=== PATIENT | male | born 1965 | race Caucasian/White ===

== ENCOUNTER 2021-01-16 08:47 | Outpatient (CLI) | payer OTHER, SELFPAY ==
--- NOTE | 2021-02-03 10:24 | WPDHOMESLEEP ---
Sleep Study - Home Unattended Date of Study: 01/16/21 Ordering Provider: Jessenia Cox MD Interpreting Provider: Jessenia Cox MD Home Sleep Study Type: Watch PAT Height: 1.85 m Weight: 136.078 kg Body Mass Index: 39.5 Neck Circumference (inches): 17.5 [place]: 8 Reason for Sleep Study restless sleep, snoring, gasping for breath during sleep Sleep History Luciano Price is a 55 year old man with a history of restless sleep with constant tossing and turning, gasping for breath at night, and not feeling refreshed on waking. He currently works at night. He changes his schedule back to her normal sleep-wake cycle on the weekends. He has tried Ambien which is not helping much and it is causing crazy dreams. He wakes up during the night. He does not awaken feeling short of breath. He occasionally awakens at night with heartburn, belching or coughing. He frequently wakes up with loud snoring. He does not have trouble sleeping with a cold, does not wake up gasping for breath at night. He occasionally has breathing problems at night reported to him by his . He does not sweat excessively at night or notices heart pounding or beating irregularly night. He occasionally falls asleep during the day, never involuntarily and never while driving. He does not have loss of muscle tone with strong emotion. He does not have daytime difficulties due to excessive sleepiness. He does not feel paralyzed on waking or falling asleep. He occasionally has vivid dreamlike scenes upon awakening or falling asleep. He is not afraid to go to sleep. He does not have nightmares. He frequently remembers his dreams. He occasionally has racing thoughts. He rarely feels sad or depressed. He occasionally has anxiety. He frequently has muscular tension. He occasionally notices parts of his body jerking. He does not kick at night. He occasionally has crawling and aching feelings in his legs. He occasionally has leg pain during the night. He does not have morning jaw pain. He rarely grinds his teeth during sleep. He frequently is bothered by pain during the day. He rarely is awakened by pain at night. He rarely wakes up feeling stiff the morning, rarely wakes up with sore achy muscles. He does not wake up with pain in the neck and spine. He has headaches, memory problems, dizziness, and sexual problems. Normal bedtime is 5:00 a.m. falling asleep within 5 minutes waking 1-2 times to use the bathroom. He wakes somewhere between 11:00 a.m. and 1:00 p.m.. He wakes 1 or 2 times to urinate. On the weekends his schedule changes and he goes to bed at 11:30 p.m. and wakes at 6:00 a.m.. He takes naps in the afternoon, and sometimes is refreshed after a short nap. He is drowsy for 2 hours after waking. He feels better in the afternoon compared to other times of the day. Habits: Never smoked tobacco. Caffeine 2 servings per week. No alcohol or recreational drugs. [facility]LY [facility] Past Medical History Medical History Essential (primary) hypertension Mixed hyperlipidemia Psoriatic arthritis Screen for colon cancer Screening PSA (prostate specific antigen) Sleep apnea Surgical History Surgical History History of ankle surgery Family History Family History Mother Family history of lupus erythematosus Social History Social History Smoking status: Never smoker Alcohol intake: never Medications Home Medications Medication Instructions Recorded Confirmed Type folic acid 1 mg tablet 1 mg PO DAILY #90 tablet 04/23/20 Rx lisinopril 20 mg tablet 20 mg PO DAILY #90 tablet 04/23/20 Rx methotrexate sodium 2.5 mg tablet 2.5 mg PO WEEKLY #24 tablet 04/23/20 Rx adalimumab 40 mg/0.8 mL See Rx Instructions SUBCUT .COMPLEX 07/16/20 History sub
[2021-02-03 11:06] VITALS: BMI 39.5
== END 2021-01-17 16:00 | disposition home or self-care (01) ==
LOC: ANHCSM 08:53
PROVIDERS: PCP Family Medicine; Visit Provider Internal Medicine Critical Care Medicine
DX: G47.10 Hypersomnia, unspecified (principal); G47.39 Other sleep apnea; G47.26 Circadian rhythm sleep disorder, shift work type
CPT/HCPCS: 95800

== ENCOUNTER 2021-03-19 12:33 | Outpatient (CLI) | payer OTHER, SELFPAY ==
--- NOTE | 2021-03-19 12:34 | ECHO_ITS ---
Patient Info Name: Luciano Price Age: 55 years : 1965 Gender: Male Ht: 73 in Wt: 293 lbs BSA: 2.67 m2 HR: 72 bpm BP: 177 / 105 mmHg Technical Quality: Fair Exam Date: 03/19/2021 3:32 PM Exam Location: [facility] Patient Status: Outpatient Admit Date: 03/19/2021 Staff Ordering Physician: Jessenia Cox MD Knife Setter: Lorena Stewart RDCS Attending Provider: Jessenia Cox MD Referring Physician: Brooke MARIE; Exam Type: CA echo doppler color flow Study Info Indications - sleep apnea /chf Complete two-dimensional, color flow and Doppler transthoracic echocardiogram is performed. Summary 1. Complete two-dimensional, color flow and Doppler transthoracic echocardiogram is performed. 2. Left ventricular systolic function is preserved, estimated at 50-55%. 3. Left ventricular chamber dimension is mildly enlarged. 4. The left ventricular diastolic function is grade I diastolic dysfunction. 5. E/e' 7 is not elevated. 6. Left atrial chamber dimension is mildly enlarged. 7. No pulmonary hypertension, estimated pulmonary arterial systolic pressure is 24 mmHg. Left Ventricle E/e' 7 is not elevated. Left ventricular systolic function is preserved, estimated at 50-55%. Left ventricular chamber dimension is mildly enlarged. The left ventricular diastolic function is grade I diastolic dysfunction. Right Ventricle Right ventricular chamber dimension is normal. Right ventricular systolic function is normal. Left Atria Left atrial chamber dimension is mildly enlarged. Right Atria Right atrial chamber dimension is normal. Aortic Valve The aortic valve is probable trileaflet. There is no aortic valve stenosis. There is no aortic valve regurgitation. Pulmonic Valve There is no pulmonic regurgitation. Mitral Valve There is no mitral valve stenosis. There is no mitral valve regurgitation. Tricuspid Valve There is no tricuspid valve regurgitation. No pulmonary hypertension, estimated pulmonary arterial systolic pressure is 24 mmHg. Pericardium/Pleural There is no pericardial effusion. Inferior Vena Cava Normal inferior vena cava with >50% collapse upon inspiration consistent with normal right atrial pressure, 5 mmHg. Aorta The aortic root size at the sinus of Valsalva is normal. Left Ventricular Outflow Tract Name Value Normal LVOT 2D LVOT Diameter 2.1 cm LVOT Doppler LVOT Peak Gradient 4 mmHg LVOT Mean Gradient 2 mmHg LVOT VTI 23 cm LVOT VTI/AV VTI Ratio 0.8 LVOT Stroke Volume 84 ml LVOT CO 16.0 l/min LVOT CI 6.0 l/min/m2 Pulmonic Valve Name Value Normal PV Doppler PV Peak Gradient
== END 2021-03-19 12:34 | disposition home or self-care (01) ==
PROVIDERS: PCP Family Medicine; Visit Provider Internal Medicine Critical Care Medicine
DX: G47.31 Primary central sleep apnea (principal)
CPT/HCPCS: 93306

== ENCOUNTER 2023-12-14 09:26 | Outpatient (CLI) | payer OTHER, SELFPAY ==
--- NOTE | 2024-01-10 12:25 | WPDSLEEPSTUD ---
Sleep Study Date of Study: 12/14/23 Ordering Provider: Dylon Palacios MD Interpreting Physician: Flaquita Gutierrez DO Sleep Study Type: CPAP Titration Height: 1.85 m Weight: 133.81 kg Body Mass Index: 38.9 Neck Circumference (inches): 19 [place]: 7 Reason for Sleep Study The patient had a WatchPAT home sleep test on 01/16/2021 that showed an overall AHI of 35, KIMBERLEE of 18.6 and desaturation down to 77%. He never got a PAP Titration study. Sleep History The patient is a 58-year-old male that had a sleep study ordered by his primary care physician for evaluation of sleep apnea. The patient rarely awakens from sleep short of breath. He occasionally awakens at night with heartburn, belching or cough. He frequently snores and is frequently loud enough that others complain. He denies having trouble sleeping when he has a cold. He denies waking up gasping for air throughout the night. He occasionally has breathing problems at night observed by himself or others. He denies sweating excessively at night. He denies having heart palpitations or irregular heartbeats during the night. He rarely falls asleep during the day but never while driving. He denies sleep paralysis, cataplexy and hypnagogic / hypnopompic hallucinations. He denies having trouble at school or work due to sleepiness. He denies feeling afraid of going to sleep. He denies having nightmares. He occasionally remembers his dreams. He occasionally has thoughts racing through his mind. He denies feeling sad or depressed. He rarely has anxiety. He denies having muscular tension. He rarely notices parts of his body jerk. He denies kicking during the night. He denies having crawling and aching feelings in his legs but occasionally has leg pain during the night. He rarely grinds his teeth during sleep but never awakens with morning jaw pain. He is frequently bothered by pain during the day but rarely awakened by pain during the night. He occasionally wakes up feeling stiff in the morning. He denies waking up with sore or achy muscles. He denies waking up with pain in the neck, spine and other joints. He goes to bed at 9:30 p.m. on both weekdays and weekends. It takes him 10-15 minutes to fall asleep. He wakes up 1-2 times throughout the night to urinate and is able to fall back asleep within a few minutes. He wakes up between 12-2 a.m. on both weekdays and weekends. He typically gets a minimum of 8 hours of sleep per night. He stays bed for 20 minutes after waking up in the morning. He currently lives with his and adult child. He denies consuming any caffeinated beverages within 2 hours of bedtime. He denies engaging in physical exercise before bedtime. He denies reading and watching television before falling asleep. He will take naps in the afternoon or the evening and they are refreshing. He consumes 1 caffeinated beverage per day. He denies tobacco, alcohol and recreational drug use. [facility] Past Medical History Medical History BMI 36.0-36.9,adult BMI 39.0-39.9,adult BMI 40.0-44.9, adult BMI over 35 Body mass index [BMI] 38.0-38.9, adult Bronchitis with wheezing Cutaneous mycobacteria Depression with anxiety Essential (primary) hypertension GERD without esophagitis Low back pain Mixed hyperlipidemia JOI (obstructive sleep apnea) Psoriatic arthritis Screen for colon cancer Screening PSA (prostate specific antigen) Sleep apnea Surgical History Surgical History History of ankle surgery Hx of colonoscopy Family History Family History Mother Family history of lupus erythematosus Father Alzheimers disease Sibling Acute myocardial infarction Sibling No problems noted. Social History Social History (Reviewed 01/10/24 @ 12:26 by Hellen
[2024-01-10 12:41] VITALS: BMI 38.9
== END 2023-12-15 07:09 | disposition home or self-care (01) ==
LOC: ANHCSM 09:26
PROVIDERS: PCP Family Medicine; Visit Provider Family Medicine
DX: G47.33 Obstructive sleep apnea (adult) (pediatric) (principal); G47.39 Other sleep apnea
CPT/HCPCS: 95811

== ENCOUNTER 2025-05-23 07:12 | Outpatient (RCR) | payer OTHER, SELFPAY ==
--- NOTE | 2025-02-28 08:03 | WNDPHOTO ---
PHOTO ONLY - See Nursing Notes and/ or assessments for documentation.
[2025-02-28 09:37] VITALS: BMI 39.6
--- NOTE | 2025-04-04 08:50 | WNDPHOTO ---
PHOTO ONLY - See Nursing Notes and/ or assessments for documentation.
== END 2025-05-29 23:59 | disposition home or self-care (01) ==
LOC: ANHWOC 07:12
PROVIDERS: PCP Family Medicine; Visit Provider Family Medicine
DX: L97.929 Non-pressure chronic ulcer of unspecified part of left lower leg with unspecified severity (principal)
CPT/HCPCS: 99213; 99214; A9270; G0463